=== PATIENT | male | born 1975 | race Caucasian/White ===

== ENCOUNTER 2023-04-10 02:41 | Observation (INO) | payer BC ==
[2023-04-10] MEDS ORDERED: IPRATROPIUM-ALBUTEROL 3 ML NEB INHALATION STA (03:04)
--- NOTE | 2023-04-10 03:07 | ED ---
General Adult HPI - General Source: patient Mode of arrival: wheelchair Limitations: no limitations <Vik Verduzco - Last Filed: 04/10/23 03:54> <Sincere Salguero - Last Filed: 04/16/23 07:26> - General Chief complaint: Shortness of Breath Stated complaint: SOB Time Seen by Provider: 04/10/23 02:51 - History of Present Illness Initial comments: 47-year-old male with past medical history significant for hypertension and morbid obesity presenting to the ED with a chief complaint of illness of breath. Patient states for the past 3 weeks has had cough. However states over the past week has had increased shortness of breath especially with exertion. Denies chest pain. No abdominal pain. No nausea or vomiting diarrhea. No other complaints. Patient noted to be hypertensive in triage. Patient reports that he has been taking all of his medications as scheduled. (Vik Verduzco) - Related Data Home Medications Medication Instructions Recorded Confirmed Losartan/Hydrochlorothiazide 1 tab PO DAILY 04/10/23 04/10/23 [Hyzaar 100-25 Tablet] Nebivolol HCl [Bystolic] 10 mg PO HS 04/10/23 04/10/23 Previous Rx's Medication Instructions Recorded Albuterol Inhaler [Ventolin Hfa 2 puff INHALATION Q6H PRN #1 each 04/11/23 Inhaler] Azithromycin [Zithromax] 500 mg PO DAILY 2 Days #2 tab 04/11/23 predniSONE [Deltasone] 40 mg PO DAILY 4 Days #8 tab 04/11/23 Allergies Allergy/AdvReac Type Severity Reaction Status Date / Time Iodinated Contrast Media Allergy Rash/Hives Verified 04/10/23 13:28 Review of Systems ROS Other: All systems not noted in ROS Statement are negative. <Vik Verduzco - Last Filed: 04/10/23 03:54> ROS Other: All systems not noted in ROS Statement are negative. <Sincere Salguero - Last Filed: 04/16/23 07:26> ROS Statement: Those systems with pertinent positive or pertinent negative responses have been documented in the HPI. Past Medical History Past Medical History: Hypertension History of Any Multi-Drug Resistant Organisms: None Reported Past Surgical History: No Surgical Hx Reported Past Psychological History: No Psychological Hx Reported Smoking Status: Never smoker Past Alcohol Use History: None Reported Past Drug Use History: None Reported <WestonJany brooksVik - Last Filed: 04/10/23 03:54> General Exam Limitations: no limitations General appearance: alert, in no apparent distress Respiratory exam: Present: wheezes (Left lung. ) Cardiovascular Exam: Present: regular rate, normal rhythm GI/Abdominal exam: Present: soft Neurological exam: Present: alert, oriented X3 Skin exam: Present: warm, dry <WestonJany brooksVik - Last Filed: 04/10/23 03:54> Course Vital Signs 04/10/23 04/10/23 04/10/23 02:42 03:50 03:58 Temperature 98.7 F Pulse Rate 81 77 80 Respiratory 18 Rate Blood Pressure 191/106 O2 Sat by Pulse 97 Oximetry 04/10/23 04/10/23 04/10/23 04:54 07:14 07:31 Temperature 98.3 F Pulse Rate 75 70 79 Respiratory 24 24 17 Rate Blood Pressure 149/78 150/90 O2 Sat by Pulse 92 L 93 L 94 L Oximetry EKG Findings - EKG Results: EKG: interpreted by ERMD, sinus rhythm (rate 79 bpm), normal axis, normal QRS, normal ST/T <Jose MSincere - Last Filed: 04/16/23 07:26> Medical Decision Making - Lab Data Result diagrams: 04/10/23 03:08 04/10/23 03:08 <LubaJanyVik - Last Filed: 04/10/23 03:54> - Lab Data Result diagrams: 04/10/23 03:08 04/10/23 03:08 <Jose MSincere - Last Filed: 04/16/23 07:26> - Medical Decision Making Was pt. sent in by a medical professional or institution (, PA, STUBBER, urgent care, hospital, or senior living...) When possible be specific @ -No Did you speak to anyone other than the patient for history (EMS, parent, family, police, friend...)? What history was obtained from this source @ -No Did you review nursing and triage notes (agree or disagree)? Why? @ -I reviewed and agree with nursing and triage notes Were old charts reviewed (outside hosp., previous admission, EMS record, old EKG, old radiological studies, urgent care reports/EKG's, senior living records)? Report findings @ -No old charts were reviewed Differential Diagnosis (chest pain, altered mental status, abdominal pain women, abdominal pain men, vaginal bleeding, weakness, fever, dyspnea, syncope, headache, dizziness, GI bleed, back pain, seizure, CVA, palpatations, mental health, musculoskeletal)? @ -Differential Dyspnea: Coronary syndrome, arrhythmia, tamponade, asthma, COPD, pulmonary embolism, pneumonia, pneumothorax, pulmonary effusion, anaphylaxis, diabetic ketoacidosis, flailed chest, pulmonary contusion, diaphragmatic rupture, anemia, neuromuscular, this is not meant to be an all-inclusive list. EKG interpreted by me (3pts min.). @ -As above X-rays interpreted by me (1pt min.). @ -Pending CT interpreted by me (1pt min.). @ -None done U/S interpreted by me (1pt. min.). @ -None done What testing was considered but not performed or refused? (CT, X-rays, U/S, labs)? Why? @ -None What meds were considered but not given or refused? Why? @ -None Did you discuss the management of the patient with other professionals (professionals i.e. , PA, STUBBER, lab, RT, psych nurse, social worker masters, felter tennis balls, teacher, strike operations officer, machine adjuster leader case trim)? Give summary @ -No Was smoking cessation discussed for >3mins.? @ -No Was critical care preformed (if so, how long)? @ -No Were there social determinants of health that impacted care today? How? (Homelessness, low income, unemployed, alcoholism, drug addiction, transportation, low edu. Level, literacy, decrease access to med. care, half-way, rehab)? @ -No Was there de-escalation of care discussed even if they declined (Discuss DNR or withdrawal of care, Hospice)? DNR status @ -No What co-morbidities impacted this encounter? (DM, HTN, Smoking, COPD, CAD, Cancer, CVA, ARF, Chemo, Hep., AIDS, mental health diagnosis, sleep apnea, morbid obesity)? @ -None Was patient admitted / discharged? Hospital course, mention meds given and route, prescriptions, significant lab abnormalities, going to OR and other pertinent info. @ -Pending 47-year-old male presenting to the ED with complaints of cough for the last 3 weeks with dyspnea especially upon exertion for the past week. At this time laboratory and imaging were pending and case signed out to my attending physician Dr. Salguero. ([facility]) Was patient admitted / discharged? Hospital course, mention meds given and route, prescriptions, significant lab abnormalities, going to OR and other pertinent info. @ -[Patient is admitted to have further treatment for possible pneumonia. The patient has wheezing which at this point is probably a reactive airway disease but he does have cardiomegaly and untreated hypertension therefore will have cardiology consultation. Undiagnosed new problem with uncertain prognosis? @ -[No] Drug Therapy requiring intensive monitoring for toxicity (Heparin, Nitro, Insulin, Cardizem)? @ -[No] Were any procedures done? @ -[No] Diagnosis/symptom? @ -[Acute reactive airway disease, possible bronchitis versus pneumonia Hypertension Acute, or Chronic, or Acute on Chronic? @ -[Acute Uncomplicated (without systemic symptoms) or Complicated (systemic symptoms)? @ -[, Complicated by dyspnea Side effects of treatment? @ -[No] Exacerbation, Progression, or Severe Exacerbation? @ -[No] Poses a threat to life or bodily function? How? (Chest pain, USA, ME, pneumonia, PE, COPD, DKA, ARF, appy, cholecystitis, CVA, Diverticulitis, Homicidal, Suicidal, threat to staff... and all critical care pts) @ -[Low likelihood (Sincere Salguero) - Lab Data Lab Results 04/10/23 04/10/23 04/10/23 Range/Units 03:08 03:08 03:08 WBC 10.2 (3.8-10.6) k/uL RBC 4.73 (4.30-5.90) m/uL Hgb 16.4 (13.0-17.5) gm/dL Hct 46.7 (39.0-53.0) % MCV 98.8 (80.0-100.0) fL MCH 34.7 (25.0-35.0) pg MCHC 35.2 (31.0-37.0) g/dL RDW 13.9 (11.5-15.5) % Plt Count 245 (150-450) k/uL MPV 8.7 Neutrophils % 73 % Lymphocytes % 18 % Monocytes % 5 % Eosinophils % 2 % Basophils % 1 % Neutrophils # 7.4 (1.3-7.7) k/uL Lymphocytes # 1.8 (1.0-4.8) k/uL Monocytes # 0.5 (0-1.0) k/uL Eosinophils # 0.2 (0-0.7) k/uL Basophils # 0.1 (0-0.2) k/uL PT 10.3 (10.0-12.5) sec INR 0.9 (<1.2) APTT 24.6 (22.0-30.0) sec Sodium (137-145) mmol/L Potassium (3.5-5.1) mmol/L Chloride (98-107) mmol/L Carbon Dioxide (22-30) mmol/L Anion Gap mmol/L BUN (9-20) mg/dL Creatinine (0.66-1.25) mg/dL Est GFR (CKD-EPI)AfAm (>60 ml/min/1.73 sqM) Est GFR (CKD-EPI)NonAf (>60 ml/min/1.73 sqM) Glucose (74-99) mg/dL Plasma Lactic Acid Abdi (0.7-2.0) mmol/L Calcium (8.4-10.2) mg/dL Magnesium (1.6-2.3) mg/dL Total Bilirubin (0.2-1.3) mg/dL AST (17-59) U/L ALT (4-49) U/L Alkaline Phosphatase (38-126) U/L Troponin I (0.000-0.034) ng/mL NT-Pro-B Natriuret Pep pg/mL Total Protein (6.3-8.2) g/dL Albumin (3.5-5.0) g/dL Procalcitonin (0.02-0.09) ng/mL Urine Color Urine Appearance (Clear) Urine pH (5.0-8.0) Ur Specific Vestal (1.001-1.035) Urine Protein (Negative) Urine Glucose (UA) (Negative) Urine Ketones (Negative) Urine Blood (Negative) Urine Nitrite (Negative) Urine Bilirubin (Negative) Urine Urobilinogen (<2.0) mg/dL Ur Leukocyte Esterase (Negative) Urine RBC (0-5) /hpf Urine WBC (0-5) /hpf Hyaline Casts (0-2) /lpf Urine Mucus (None) /hpf Influenza Type A (PCR) Not Detected (Not Detectd) Influenza Type B (PCR) Not Detected (Not Detectd) RSV (PCR) Not Detected (Not Detectd) SARS-CoV-2 (PCR) Not Detected (Not Detectd) 04/10/23 04/10/23 04/10/23 Range/Units 03:08 03:08 03:08 WBC (3.8-10.6) k/uL RBC (4.30-5.90) m/uL Hgb (13.0-17.5) gm/dL Hct (39.0-53.0) % MCV (80.0-100.0) fL MCH (25.0-35.0) pg MCHC (31.0-37.0) g/dL RDW (11.5-15.5) % Plt Count (150-450) k/uL MPV Neutrophils % % Lymphocytes % % Monocytes % % Eosinophils % % Basophils % % Neutrophils # (1.3-7.7) k/uL Lymphocytes # (1.0-4.8) k/uL Monocytes # (0-1.0) k/uL Eosinophils # (0-0.7) k/uL Basophils # (0-0.2) k/uL PT (10.0-12.5) sec INR (<1.2) APTT (22.0-30.0) sec Sodium 137 (137-145) mmol/L Potassium 4.1 (3.5-5.1) mmol/L Chloride 100 (98-107) mmol/L Carbon Dioxide 27 (22-30) mmol/L Anion Gap 10 mmol/L BUN 10 (9-20) mg/dL Creatinine 0.55 L (0.66-1.25) mg/dL Est GFR (CKD-EPI)AfAm >90 (>60 ml/min/1.73 sqM) Est GFR (CKD-EPI)NonAf >90 (>60 ml/min/1.73 sqM) Glucose 117 H (74-99) mg/dL Plasma Lactic Acid Abdi 1.1 (0.7-2.0) mmol/L Calcium 9.7 (8.4-10.2) mg/dL Magnesium 1.9 (1.6-2.3) mg/dL Total Bilirubin 0.9 (0.2-1.3) mg/dL AST 57 (17-59) U/L ALT 54 H (4-49) U/L Alkaline Phosphatase 81 (38-126) U/L Troponin I <0.012 (0.000-0.034) ng/mL NT-Pro-B Natriuret Pep 95 pg/mL Total Protein 8.5 H (6.3-8.2) g/dL Albumin 4.3 (3.5-5.0) g/dL Procalcitonin (0.02-0.09) ng/mL Urine Color Urine Appearance (Clear) Urine pH (5.0-8.0) Ur Specific Vestal (1.001-1.035) Urine Protein (Negative) Urine Glucose (UA) (Negative) Urine Ketones (Negative) Urine Blood (Negative) Urine Nitrite (Negative) Urine Bilirubin (Negative) Urine Urobilinogen (<2.0) mg/dL Ur Leukocyte Esterase (Negative) Urine RBC (0-5) /hpf Urine WBC (0-5) /hpf Hyaline Casts (0-2) /lpf Urine Mucus (None) /hpf Influenza Type A (PCR) (Not Detectd) Influenza Type B (PCR) (Not Detectd) RSV (PCR) (Not Detectd) SARS-CoV-2 (PCR) (Not Detectd) 04/10/23 04/10/23 Range/Units 03:08 05:20 WBC (3.8-10.6) k/uL RBC (4.30-5.90) m/uL Hgb (13.0-17.5) gm/dL Hct (39.0-53.0) % MCV (80.0-100.0) fL MCH (25.0-35.0) pg MCHC (31.0-37.0) g/dL RDW (11.5-15.5) % Plt Count (150-450) k/uL MPV Neutrophils % % Lymphocytes % % Monocytes % % Eosinophils % % Basophils % % Neutrophils # (1.3-7.7) k/uL Lymphocytes # (1.0-4.8) k/uL Monocytes # (0-1.0) k/uL Eosinophils # (0-0.7) k/uL Basophils # (0-0.2) k/uL PT (10.0-12.5) sec INR (<1.2) APTT (22.0-30.0) sec Sodium (137-145) mmol/L Potassium (3.5-5.1) mmol/L Chloride (98-107) mmol/L Carbon Dioxide (22-30) mmol/L Anion Gap mmol/L BUN (9-20) mg/dL Creatinine (0.66-1.25) mg/dL Est GFR (CKD-EPI)AfAm (>60 ml/min/1.73 sqM) Est GFR (CKD-EPI)NonAf (>60 ml/min/1.73 sqM) Glucose (74-99) mg/dL Plasma Lactic Acid Abdi (0.7-2.0) mmol/L Calcium (8.4-10.2) mg/dL Magnesium (1.6-2.3) mg/dL Total Bilirubin (0.2-1.3) mg/dL AST (17-59) U/L ALT (4-49) U/L Alkaline Phosphatase (38-126) U/L Troponin I (0.000-0.034) ng/mL NT-Pro-B Natriuret Pep pg/mL Total Protein (6.3-8.2) g/dL Albumin (3.5-5.0) g/dL Procalcitonin 0.13 H (0.02-0.09) ng/mL Urine Color Yellow Urine Appearance Clear (Clear) Urine pH 6.0 (5.0-8.0) Ur Specific Vestal 1.017 (1.001-1.035) Urine Protein 1+ H (Negative) Urine Glucose (UA) Negative (Negative) Urine Ketones Negative (Negative) Urine Blood Negative (Negative) Urine Nitrite Negative (Negative) Urine Bilirubin Negative (Negative) Urine Urobilinogen <2.0 (<2.0) mg/dL Ur Leukocyte Esterase Negative (Negative) Urine RBC 1 (0-5) /hpf Urine WBC 1 (0-5) /hpf Hyaline Casts 1 (0-2) /lpf Urine Mucus Moderate H (None) /hpf Influenza Type A (PCR) (Not Detectd) Influenza Type B (PCR) (Not Detectd) RSV (PCR) (Not Detectd) SARS-CoV-2 (PCR) (Not Detectd) - EKG Data EKG Comments: EKG shows a sinus rhythm without acute ST or T-wave changes at 79 beats for minute. Short ME interval at 113 ms. QRS 97, QT/QTc 354/389. (Vik Verduzco) Disposition <Vik Verduzco - Last Filed: 04/10/23 03:54> Is patient prescribed a controlled substance at d/c from ED?: No <Sincere Salguero - Last Filed: 04/16/23 07:26> Clinical Impression: Reactive airway disease, Hypertension Narrative: possible pneumonia (Sincere Salguero) Disposition: ADMITTED IP TO THIS HOSP Condition: Fair
[2023-04-10] MEDS ORDERED: LORazepam 2 MG/ML INJ IV STA (03:29)
[2023-04-10 03:47] LABS: Basophils # (A) 0.1 k/uL (0-0.2); Basophils % (A) 1 %; Eosinophils # (A) 0.2 k/uL (0-0.7); Eosinophils % (A) 2 %; HCT 46.7 % (39.0-53.0); HGB 16.4 gm/dL (13.0-17.5); Lymphocytes # (A) 1.8 k/uL (1.0-4.8); Lymphocytes % (A) 18 %; MCH 34.7 pg (25.0-35.0); MCHC 35.2 g/dL (31.0-37.0); MCV 98.8 fL (80.0-100.0); Mean Platelet Volume 8.7; Monocytes # (A) 0.5 k/uL (0-1.0); Monocytes % (A) 5 %; Neutrophils # (A) 7.4 k/uL (1.3-7.7); Neutrophils % (A) 73 %; Platelet Count 245 k/uL (150-450); RBC 4.73 m/uL (4.30-5.90); RDW 13.9 % (11.5-15.5); WBC 10.2 k/uL (3.8-10.6)
[2023-04-10 03:48] LABS: ALT 54 U/L (4-49); AST 57 U/L (17-59); African American GFR (CKD) >90 (>60 ml/min/1.73 sqM); Albumin 4.3 g/dL (3.5-5.0); Alkaline Phosphatase 81 U/L (38-126); Anion Gap 10 mmol/L; Blood Urea Nitrogen 10 mg/dL (9-20); Calcium 9.7 mg/dL (8.4-10.2); Carbon Dioxide 27 mmol/L (22-30); Chloride 100 mmol/L (98-107); Glucose 117 mg/dL (74-99); Magnesium 1.9 mg/dL (1.6-2.3); Non-African American GFR(CKD) >90 (>60 ml/min/1.73 sqM); Potassium 4.1 mmol/L (3.5-5.1); Sodium 137 mmol/L (137-145); Total Bilirubin 0.9 mg/dL (0.2-1.3); Total Protein 8.5 g/dL (6.3-8.2)
[2023-04-10 03:52] LABS: INR 0.9 (<1.2); Partial Thromboplastin Time 24.6 sec (22.0-30.0); Prothrombin Time 10.3 sec (10.0-12.5)
[2023-04-10] MEDS ORDERED: NITROGLYCERIN OINT 1 INCH/GM PACKET TOPICAL STA (03:53)
[2023-04-10 03:57] LABS: NT-Pro-B-Type Natriuretic Pept 95 pg/mL
--- NOTE | 2023-04-10 04:52 | XR ---
EXAM: XR Chest, 2 Views CLINICAL HISTORY: r/o pna TECHNIQUE: Frontal and lateral views of the chest. COMPARISON: No relevant prior studies available. FINDINGS: Lungs: Heart is at the upper limits of normal/mildly enlarged with pulmonary vascular congestion/edema. Hypoventilation with bilateral lower lobe atelectasis and/or infiltrates. Pleural space: Unremarkable. No pneumothorax. Heart: See above Mediastinum: Unremarkable. Normal mediastinal contour. Bones/joints: Grossly unremarkable. IMPRESSION: 1. Heart is at the upper limits of normal/mildly enlarged with pulmonary vascular congestion/edema. 2. Hypoventilation with bilateral lower lobe atelectasis and/or infiltrates. Correlate clinically.
[2023-04-10 05:46] LABS: Appearance,Urine Clear (Clear); Bilirubin,Urine Negative (Negative); Blood,Urine Negative (Negative); Color,Urine Yellow; Glucose,Urine (UA) Negative (Negative); Hyaline Casts,Urine 1 /lpf (0-2); Ketones,Urine Negative (Negative); Leukocyte Esterase,Urine Negative (Negative); Mucus,Urine Moderate /hpf; Nitrite,Urine Negative (Negative); Protein,Urine 1+ (Negative); RBC,Urine 1 /hpf (0-5); Specific Gravity,Urine 1.017 (1.001-1.035); Urobilinogen,Urine <2.0 mg/dL (<2.0); WBC,Urine 1 /hpf (0-5)
[2023-04-10] MEDS ORDERED: AZITHROMYCIN 500 MG TAB PO STA (06:13)
[2023-04-10] MEDS ORDERED: ALBUTEROL NEBULIZED 2.5 MG/3 ML INHALATION STA (06:13)
[2023-04-10] MEDS ORDERED: predniSONE 20 MG TAB PO STA (06:13)
[2023-04-10] MEDS ORDERED: ACETAMINOPHEN TAB 325 MG TAB PO PRN (06:14)
[2023-04-10] MEDS ORDERED: IPRATROPIUM-ALBUTEROL 3 ML NEB INHALATION PRN (06:14)
[2023-04-10] MEDS ORDERED: NALOXONE 0.4 MG/ML 1 ML VIAL IVP PRN (06:14)
[2023-04-10] MEDS: IPRATROPIUM-ALBUTEROL 3 ML NEB INHALATION SCH ×4 (09:14→20:36)
[2023-04-10] MEDS: AZITHROMYCIN 500 MG TAB PO SCH (09:58)
[2023-04-10] MEDS: predniSONE 20 MG TAB PO SCH (09:58)
--- NOTE | 2023-04-10 14:28 | P.HPIM ---
History of Present Illness H&P Date: 04/10/23 History of present illness; patient is a 47-year-old gentleman with past medical history significant for hypertension, obesity presented to the ER because of shortness of breath. Patient stated that he has been dealing with a cough for the last few weeks. Patient states the cough is dry. Denies any fever or chills. Patient has been noticing that he is getting more short of breath on exertion. Denies any chest pain. Denies any orthopnea or PND. There was no complain of swelling of feet. Patient denies any sick contacts in the family. Denies any nausea, vomiting abdominal pain. Because of the symptoms, patient came to the ER Initial lab work done in the ER showed WBC 10.2, hemoglobin 16.4, platelet count 245, sodium 137 potassium 4.1, BUN 10, creatinine 0.55, troponin 0.012 UA negative for infection Influenza A not detected Influenza B not detected RSV not detected COVID-19 not detected EKG done in the ER showed heart rate of 79 , no ST segment elevation or depression seen, no T-wave inversions seen. Chest x-ray done in the ER mild cardiomegaly with pulmonary vascular congestion/edema,Hypoventilation with bilateral lower lobe atelectasis or infiltrates Patient admitted to internal medicine service REVIEW OF SYSTEMS: CONSTITUTIONAL: As mentioned in HPI HEENT: No recent visual problems or hearing problems. Denied any sore throat. CARDIOVASCULAR: As mentioned in HPI PULMONARY: As mentioned in HPI GASTROINTESTINAL: No diarrhea, no nausea, no vomiting, no abdominal pain. NEUROLOGICAL: No headaches, no weakness, no numbness. HEMATOLOGICAL: Denies any bleeding or petechiae. GENITOURINARY: Denies any burning micturition, frequency, or urgency. MUSCULOSKELETAL/RHEUMATOLOGICAL: Denies any joint pain, swelling, or any muscle pain. ENDOCRINE: Denies any polyuria or polydipsia. The rest of the 14-point review of systems is negative. PHYSICAL EXAMINATION: GENERAL: The patient is alert and oriented x3, not in any acute distress. Well developed, well nourished. HEENT: Pupils are round and equally reacting to light. EOMI. No scleral icterus. No conjunctival pallor. Normocephalic, atraumatic. No pharyngeal erythema. No thyromegaly. CARDIOVASCULAR: S1 and S2 present. No murmurs, rubs, or gallops. PULMONARY: Coarse breath some bilaterally, expiratory wheeze audible ABDOMEN: Soft, nontender, nondistended, normoactive bowel sounds. No palpable organomegaly. MUSCULOSKELETAL: No joint swelling or deformity. EXTREMITIES: Chronic lymphedematous changes of lower extremity bilaterally NEUROLOGICAL: Gross neurological examination did not reveal any focal deficits. SKIN: No rashes. Assessment and plan Acute tracheobronchitis Exertional dyspnea Hypertension Obesity Monitor vital signs Monitor CBC Monitor CMP Continue telemetry monitoring And troponin Ordered d-dimer Ordered 2-D echo Continue steroids Continue azithromycin Resume home meds Consult cardiology Labs and medication were reviewed.. Continue same treatment. Continue with symptomatic treatment. Resume home medication. Monitor labs and vitals. DVT and GI prophylaxis. Further recommendations as per clinical course of the patient Dictation was produced using [employer] dictation software. please excuse any grammatical, word or spelling errors. Past Medical History Past Medical History: Hypertension History of Any Multi-Drug Resistant Organisms: None Reported Past Surgical History: No Surgical Hx Reported Past Psychological History: No Psychological Hx Reported Smoking Status: Never smoker Past Alcohol Use History: None Reported Past Drug Use History: None Reported Medications and Allergies Home Medications Medication Instructions Recorded Confirmed Type Losartan/Hydrochlorothiazide 1 tab PO DAILY 04/10/23 04/10/23 History [Hyzaar 100-25 Tablet] Nebivolol HCl [Bystolic] 10 mg PO HS 04/10/23 04/10/23 History Allergies Allergy/AdvReac Type Severity Reaction Status Date / Time Iodinated Contrast Media Allergy Rash/Hives Verified 04/10/23 13:28 Physical Exam Vitals: Vital Signs Temp Pulse Resp BP Pulse Ox 04/10/23 09:26 80 04/10/23 09:17 76 04/10/23 07:31 98.3 F 79 17 94 L 04/10/23 07:14 70 24 150/90 93 L 04/10/23 04:54 75 24 149/78 92 L 04/10/23 03:58 80 04/10/23 03:50 77 04/10/23 02:42 98.7 F 81 18 191/106 97 Intake and Output 04/09/23 04/10/23 04/10/23 22:59 06:59 14:59 Intake Total 118 Balance 118 Intake: Oral 118 Other: Weight 215.91 kg Results CBC & Chem 7: 04/10/23 03:08 04/10/23 03:08 Labs: Abnormal Lab Results - Last 24 Hours (Table) 04/10/23 04/10/23 Range/Units 03:08 05:20 Creatinine 0.55 L (0.66-1.25) mg/dL Glucose 117 H (74-99) mg/dL ALT 54 H (4-49) U/L Total Protein 8.5 H (6.3-8.2) g/dL Urine Protein 1+ H (Negative) Urine Mucus Moderate H (None) /hpf
[2023-04-10] MEDS: LOSARTAN-HCTZ 50-12.5 MG 1 EACH TAB PO SCH (15:06)
[2023-04-10] MEDS ORDERED: NEBIVOLOL 5 MG TAB PO SCH (21:00)
[2023-04-10 21:51] VITALS: RESP 16
[2023-04-11] MEDS: IPRATROPIUM-ALBUTEROL 3 ML NEB INHALATION SCH ×2 (07:32→11:21)
[2023-04-11 07:56] VITALS: BP 137/82; TEMP 98
[2023-04-11] MEDS: AZITHROMYCIN 500 MG TAB PO SCH (08:26)
[2023-04-11] MEDS: predniSONE 20 MG TAB PO SCH (08:26)
[2023-04-11] MEDS: LOSARTAN-HCTZ 50-12.5 MG 1 EACH TAB PO SCH (08:27)
[2023-04-11 11:24] VITALS: PULSE 84
--- NOTE | 2023-04-11 12:41 | P.DS ---
Providers Date of admission: 04/10/23 06:16 Expected date of discharge: 04/11/23 Attending physician: Ying Pederson Consults: 04/10/23 14:27 Consult Physician Routine Consulting Provider: Mesfin Carbajal Consult Reason/Comments: Exertional dyspnea Do you want consulting provider notified?: Yes Primary care physician: [facility] Course: Discharge diagnoses; Acute tracheobronchitis Exertional dyspnea Hypertension Obesity Hospital course; patient is a 47-year-old gentleman with past medical history significant for hypertension, obesity presented to the ER because of shortness of breath. Patient stated that he has been dealing with a cough for the last few weeks. Patient states the cough is dry. Denies any fever or chills. Patient has been noticing that he is getting more short of breath on exertion. Denies any chest pain. Denies any orthopnea or PND. There was no complain of swelling of feet. Patient denies any sick contacts in the family. Denies any nausea, vomiting abdominal pain. Because of the symptoms, patient came to the ER Initial lab work done in the ER showed WBC 10.2, hemoglobin 16.4, platelet count 245, sodium 137 potassium 4.1, BUN 10, creatinine 0.55, troponin 0.012 UA negative for infection Influenza A not detected Influenza B not detected RSV not detected COVID-19 not detected EKG done in the ER showed heart rate of 79 , no ST segment elevation or depression seen, no T-wave inversions seen. Chest x-ray done in the ER mild cardiomegaly with pulmonary vascular congestion/edema,Hypoventilation with bilateral lower lobe atelectasis or infiltrates Patient admitted to internal medicine service 04/11. Patient seen and examined. Cardiology evaluated the patient, recommended keeping patient on current medications, 2-D echo was ordered but it will be done outpatient. Patient being discharged on prednisone and azithromycin. PHYSICAL EXAMINATION: GENERAL: The patient is alert and oriented x3, not in any acute distress. Well developed, well nourished. HEENT: Pupils are round and equally reacting to light. EOMI. No scleral icterus. No conjunctival pallor. Normocephalic, atraumatic. No pharyngeal erythema. No thyromegaly. CARDIOVASCULAR: S1 and S2 present. No murmurs, rubs, or gallops. PULMONARY: Chest is clear to auscultation, no wheezing or crackles. ABDOMEN: Soft, nontender, nondistended, normoactive bowel sounds. No palpable organomegaly. MUSCULOSKELETAL: No joint swelling or deformity. EXTREMITIES: No cyanosis, clubbing, or pedal edema. NEUROLOGICAL: Gross neurological examination did not reveal any focal deficits. SKIN: No rashes. Dictation was produced using [employer] dictation software. please excuse any grammatical, word or spelling errors. Patient Condition at Discharge: Fair Plan - Discharge Summary New Discharge Prescriptions: New Albuterol Inhaler [Ventolin Hfa Inhaler] 2 puff INHALATION Q6H PRN #1 each PRN Reason: Shortness Of Breath Or Wheezing Azithromycin [Zithromax] 500 mg PO DAILY 2 Days #2 tab predniSONE [Deltasone] 40 mg PO DAILY 4 Days #8 tab Continue Nebivolol HCl [Bystolic] 10 mg PO HS Losartan/Hydrochlorothiazide [Hyzaar 100-25 Tablet] 1 tab PO DAILY Discharge Medication List Losartan/Hydrochlorothiazide [Hyzaar 100-25 Tablet] 1 tab PO DAILY 04/10/23 [History] Nebivolol HCl [Bystolic] 10 mg PO HS 04/10/23 [History] Albuterol Inhaler [Ventolin Hfa Inhaler] 2 puff INHALATION Q6H PRN #1 each 04/11/23 [Rx] Azithromycin [Zithromax] 500 mg PO DAILY 2 Days #2 tab 04/11/23 [Rx] predniSONE [Deltasone] 40 mg PO DAILY 4 Days #8 tab 04/11/23 [Rx] Follow up Appointment(s)/Referral(s): Daryn Romero DO [Primary Care Provider] - 1-2 days Mesfin Carbajal MD [STAFF PHYSICIAN] - 1 Week Discharge Disposition: HOME SELF-CARE
--- NOTE | 2023-04-11 13:52 | P.CRDCN ---
History of Present Illness Consult date: 04/11/23 Reason for Consult (text): Exertional dyspnea History of present illness: This is Fidel Jeffers NP, I'm dictating on behalf of Dr. Harris's H&P and A&P The patient was interviewed and examined. HPI: Patient is a pleasant 47-year-old male who presented to the hospital with complaints of wheezing, productive cough for the last few weeks, and exertional dyspnea. Patient reports over the last few weeks he's had shortness of breath, and a productive cough with green sputum. He states his been increasingly difficult to walk to certain places without getting significantly short of breath. Patient also is reporting some subjective swelling in his lower extremities, he does state that his lower extremities do swell, but he states this is worse than it normally is. Due to this the patient presented to the emergency department for evaluation. Patient has a pertinent past medical history that includes hypertension, morbid obesity. EKG demonstrated sinus rhythm with no ST or T wave changes. ROS: [No fever, chills, or rigors] [no cough, phlegm, or expectoration] [no nausea, vomiting, or diarrhea] [no hematuria, dysuria] [no musculoskelatal complaints] [no strokes or seizures] [no skin lesions] EXAMINATION: GENERAL: Well-appearing, well-nourished and in no acute distress. NECK: Supple without JVD or thyromegaly. LUNGS: Breath sounds clear to auscultation bilaterally. Respiration equal and unlabored. No wheezes, rales or rhonchi. HEART: Regular rate and rhythm without murmurs, rubs or gallops. S1 and S2 heard. EXTREMITIES: Normal range of motion, no edema. No clubbing or cyanosis. Peripheral pulses intact and strong. REVIEW OF LABS, ECG & MEDICAL DATA: LABS: White count 10.2, hemoglobin 16.4, platelets 245, d-dimer 0.32, sodium 137, potassium 4.1, BUN 10, creatinine 0.55, magnesium 1.9, troponin-less than 0.0123, BNP 95, pro-calcitonin 0.13. EKG: Normal sinus rhythm IMAGING: Chest x-ray dated 04/10/2023 demonstrates heart is at the upper limits of normal/mildly enlarged with pulmonary vascular congestion/edema, hypoventilation with bilateral lower lobe atelectasis and/or infiltrates, correlate clinically. VITALS: Temp 98.0, pulse 84, respirations 16, blood pressure 137/82, O2 saturation 93% on room air IMPRESSION: 1. Bronchitis 2. Exertional dyspnea secondary to bronchitis 3. Morbid obesity 4. Lower extremity edema PLAN: D-dimer is within normal limits, no need for further evaluation for pulmonary embolism. Obtain echocardiogram with contrast to evaluate heart structure and function. Continue nebivolol and Hyzaar. It's very likely that the patient's exertional dyspnea secondary to bronchitis. Recommend antibiotics per the medical team. If patient would like to be discharged today, this is fine from a cardiology standpoint. Thank you for the consult and allowing us to participate in the care of this patient. Past Medical History Past Medical History: Hypertension History of Any Multi-Drug Resistant Organisms: None Reported Past Surgical History: No Surgical Hx Reported Past Psychological History: No Psychological Hx Reported Smoking Status: Never smoker Past Alcohol Use History: None Reported Past Drug Use History: None Reported Medications and Allergies Home Medications Medication Instructions Recorded Confirmed Type Losartan/Hydrochlorothiazide 1 tab PO DAILY 04/10/23 04/10/23 History [Hyzaar 100-25 Tablet] Nebivolol HCl [Bystolic] 10 mg PO HS 04/10/23 04/10/23 History Albuterol Inhaler [Ventolin Hfa 2 puff INHALATION Q6H PRN #1 each 04/11/23 Rx Inhaler] Azithromycin [Zithromax] 500 mg PO DAILY 2 Days #2 tab 04/11/23 Rx predniSONE [Deltasone] 40 mg PO DAILY 4 Days #8 tab 04/11/23 Rx Allergies Allergy/AdvReac Type Severity Reaction Status Date / Time Iodinated Contrast Media Allergy Rash/Hives Verified 04/10/23 13:28 Physical Exam Vitals: Vital Signs Temp Pulse Pulse Resp BP Pulse Ox 04/11/23 11:31 84 04/11/23 11:22 84 04/11/23 07:51 80 04/11/23 07:34 84 04/11/23 07:00 98.0 F 76 16 137/82 93 L 04/11/23 01:45 87 16 04/11/23 01:38 66 16 134/56 95 04/10/23 20:55 87 16 04/10/23 20:50 80 12/23/23 20:38 78 04/10/23 19:23 98.2 F 87 16 171/74 92 L 04/10/23 16:23 82 04/10/23 16:14 78 04/10/23 14:50 98.2 F 83 18 127/68 90 L Intake and Output 04/10/23 04/11/23 04/11/23 22:59 06:59 14:59 Intake Total 360 Balance 360 Intake: Oral 360 Other: # Voids 2 1 Results 04/10/23 03:08 04/10/23 03:08 Cardiac Enzymes 04/10/23 Range/Units 14:13 Troponin I <0.012 (0.000-0.034) ng/mL Current Medications Generic Name Dose Route Start Last Admin Trade Name Freq PRN Reason Stop Dose Admin Acetaminophen 650 mg 04/10/23 06:14 Acetaminophen Tab 325 Mg Tab PO Q4HR PRN Mild Pain or Fever > 100.5 Albuterol/Ipratropium 3 ml 04/10/23 08:00 04/11/23 11:21 Ipratropium-Albuterol 3 Ml Neb INHALATION 3 ml RT-QID JOVITA Administration Albuterol/Ipratropium 3 ml 04/10/23 06:14 Ipratropium-Albuterol 3 Ml Neb INHALATION RT-Q2H PRN Shortness Of Breath Or Wheezing Azithromycin 500 mg 04/10/23 09:00 04/11/23 08:26 Azithromycin 500 Mg Tab PO 04/12/23 09:01 500 mg DAILY JOVITA Administration Protocol HCTZ/Losartan Potassium 2 each 04/10/23 15:00 04/11/23 08:27 Losartan-Hctz 50-12.5 Mg 1 Each Tab PO 2 each DAILY JOVITA Administration Naloxone HCl 0.2 mg 04/10/23 06:14 Naloxone 0.4 Mg/Ml 1 Ml Vial IVP Q2M PRN Opioid Reversal Nebivolol 10 mg 04/12/23 09:00 Nebivolol 5 Mg Tab PO DAILY JOVITA Prednisone 40 mg 04/10/23 09:00 04/11/23 08:26 Prednisone 20 Mg Tab PO 04/14/23 09:01 40 mg DAILY JOVITA Administration Intake and Output 04/10/23 04/11/23 04/11/23 22:59 06:59 14:59 Intake Total 360 Balance 360 Intake: Oral 360 Other: # Voids 2 1 04/10/23 03:08 04/10/23 03:08
[2023-04-12] MEDS ORDERED: amLODIPine 10 MG TAB PO SCH (09:00)
[2023-04-12] MEDS ORDERED: NEBIVOLOL 5 MG TAB PO SCH (09:00)
== END 2023-04-11 14:07 | disposition home or self-care (01) ==
LOC: EC 02:41 → 6NMEDSUR 06:16
PROVIDERS: ADMIT Hospitalist; ATTEND Hospitalist
DX: J20.9 Acute bronchitis, unspecified (principal); I11.9 Hypertensive heart disease without heart failure; E66.01 Morbid (severe) obesity due to excess calories; Z68.44 Body mass index [BMI] 60.0-69.9, adult; Z79.899 Other long term (current) drug therapy; Z91.041 Radiographic dye allergy status; Z20.822 Contact with and (suspected) exposure to COVID-19
CPT/HCPCS: 96365; 96375; 99285; 36415; 94640 ×4; 93005; 85379 ×2; 83880; 80061; 80053; 83605; 83735; 84484; 85025; 85610; 85730; 81001; 87040; 84145; 87636; 71046; G0378 ×3; J2060; J0696; J7512 ×2

== ENCOUNTER 2023-07-09 08:45 | Day surgery (SDC) | payer BC ==
[~2023-07-09 08:45] MED LIST: ALPRAZolam 0.25 MG TAB PO PRN; HEPARIN SODIUM,PORCINE (1 ML) 2,500 UNIT in SODIUM CHLORIDE 0.9% 250 ML IRRIGATION PRN; HEPARIN SODIUM,PORCINE 10,000 UNIT in SODIUM CHLORIDE 0.9% 1,000 ML IRRIGATION PRN; NITROGLYCERIN SL TABS 0.4 MG TAB SUBLINGUAL PRN
[2023-07-09] MEDS: SODIUM CHLORIDE 0.9% 1,000 ML in EMPTY BAG 1 BAG IV SCH (08:52)
[2023-07-09] MEDS: ASPIRIN 325 MG TAB PO STA (09:13)
[2023-07-09 09:29] LABS: Basophils % (A) 0 %; Eosinophils # (A) 0.1 k/uL (0-0.7); Eosinophils % (A) 1 %; HCT 45.4 % (39.0-53.0); HGB 15.1 gm/dL (13.0-17.5); Lymphocytes # (A) 1.7 k/uL (1.0-4.8); Lymphocytes % (A) 13 %; MCH 33.2 pg (25.0-35.0); MCHC 33.3 g/dL (31.0-37.0); MCV 99.8 fL (80.0-100.0); Mean Platelet Volume 8.6; Monocytes # (A) 0.5 k/uL (0-1.0); Monocytes % (A) 4 %; Neutrophils % (A) 81 %; Platelet Count 217 k/uL (150-450); RBC 4.55 m/uL (4.30-5.90); RDW 12.4 % (11.5-15.5); WBC 13.6 k/uL (3.8-10.6)
[2023-07-09 09:32] VITALS: RESP 16; TEMP 97.9
[2023-07-09] MEDS: ATORVASTATIN 80 MG TAB PO STA (09:38)
[2023-07-09] MEDS: ALPRAZolam 0.5 MG TAB PO PRN (09:38)
[2023-07-09] MEDS ORDERED: VERAPAMIL 2.5 MG/ML 2 ML AMP ONE (10:00)
[2023-07-09] MEDS ORDERED: LIDOCAINE 1% INJ 10MG/ML (20 ML MDV) ONE (10:00)
[2023-07-09] MEDS ORDERED: fentaNYL (PF) 50 MCG/ML 2 ML AMP ONE (10:00)
[2023-07-09 10:37] LABS: African American GFR (CKD) >90 (>60 ml/min/1.73 sqM); Anion Gap 8 mmol/L; Blood Urea Nitrogen 13 mg/dL (9-20); Calcium 9.4 mg/dL (8.4-10.2); Carbon Dioxide 24 mmol/L (22-30); Chloride 105 mmol/L (98-107); Glucose 132 mg/dL (74-99); Non-African American GFR(CKD) >90 (>60 ml/min/1.73 sqM); Potassium 4.3 mmol/L (3.5-5.1); Sodium 137 mmol/L (137-145)
[2023-07-09] MEDS: MIDAZOLAM 2 MG/2 ML VIAL IVP ONE (10:37)
[2023-07-09] MEDS: fentaNYL (PF) 50 MCG/ML 2 ML AMP IVP ONE (10:37)
[2023-07-09] MEDS: LIDOCAINE 1% INJ 10MG/ML (20 ML MDV) SQ ONE (10:39)
[2023-07-09] MEDS: VERAPAMIL SYRINGE (5 MG/10 ML) INTRAARTER ONE (10:40)
[2023-07-09] MEDS: NITROGLYCERIN 1000MCG/10ML SYRINGE INTRAARTER ONE (10:45)
[2023-07-09] MEDS: HEPARIN SODIUM 1,000 UN/ML (10ML VL) IV ONE (10:48)
[2023-07-09] MEDS: IOPAMIDOL-370 100ML BTL INJ ONE (10:58)
[2023-07-09] MEDS ORDERED: RX INFO: IV CONTRAST WAS GIVEN 1 EACH MISC MISCELLANE PRN (11:13)
--- NOTE | 2023-07-09 11:13 | P.CARDCATH ---
Date of Procedure: 07/09/23 Description of Procedure: DIAGNOSTIC CORONARY ANGIOGRAPHY and LEFT HEART CATH REPORT PROCEDURES PERFORMED: Left heart catheterization Selective coronary angiography Moderate conscious sedation 20 mins [Ultrasound assisted] Right radial access INDICATION: 47-year-old presented to cardiology clinic because of exertional shortness of breath. Because of his large body habitus he is not a good candidate for stress testing as it would lead to significant attenuation artifact CONSENT: I have explained the procedural steps of above-mentioned procedures in layman's terms to the patient. I discussed the risks (including but not limited to stroke, emergent vascular or cardiac surgery or ), benefits and alternative therapies for the above-mentioned procedure. I discussed the risks of sedation/analgesia and blood product administration (if indicated). The patient has indicated understanding and acceptance of these risks. Conscious Sedation: Patient's ECG, heart rate, blood pressure, pulse oximetry were monitored throughout the duration of procedure under my direct supervision. [2] mg Versed and [50] mg Fentanyl were used for induction of moderate conscious sedation. Total duration of moderate concious sedation 20 minutes. PROCEDURE: After explaining the risks, benefits and alternatives of the above mentioned procedures in detail to the patient, informed consent was obtained. Patient was taken to the catheterization lab, prepped and draped in usual sterile fashion using universal precuations. Barbow and esau test were performed to confirm adequate perfusion to fingers. Ultrasound was used to identify the radial artery. 1% lidocaine was infiltrated over the right radial artery. A 6-Palau[place] sheath was placed and secured in the right radial artery using modified Seldinger technique. The sheath was flushed and 7.5 mg verapamil and 200 mcg nitroglycerin was administered intra-arterially. J tipped wire was advanced under fluoroscopic guidance. Once the wire tip reached aortic root 8000 units of IV heparin was given. Over the wire JR4 diagnostic catheter was advanced. The wire in place the catheter was manipulated to cross the aortic valve and entered into LV under fluoroscopy guidance. The wire was removed and the catheter was flushed. LV pressures were obtained and pullback was performed under fluoroscopy. Catheter was manipulated to selectively engage the right coronary ostium. Right coronary angiography was performed in different angiographic projections. The JR4 diagnostic catheter was exchanged for a JL 4 diagnostic catheter over the J-wire. The wire was removed, catheter was flushed and manipulated under fluoroscopy to selectively engaged the left coronary ostium. Left coronary angioplasty was performed in different angiographic projections. Catheter was removed over the wire. Radial sheath was flushed. The right radial sheath was removed and a TR band was placed with excellent patent hemostasis was achieved. The patient tolerated the procedure well. Patient was transported back to the post catheterization holding area in stable condition. Angiographic images were reviewed in detail. HEMODYNAMICS: Aortic Pressure: 120/75 mmHg. LV pressure: 136/10 mmHg. LVEDP 25 mmHg. There was no significant gradient across the aortic valve. SELECTIVE CORONARY ARTERIOGRAPHY: LEFT MAIN: The left main is a large caliber vessel which trifurcates into the LAD, Ramus and circumflex. Left main appears angiographically normal. LEFT ANTERIOR DESCENDING CORONARY ARTERY: LAD is a large caliber vessel which wraps around to the apex. Proximal LAD appears angiographically normal. Mid LAD appears angiographically normal. Distal LAD appears angiographically normal. Proximal LAD gives a medium size diagonal branch which appears angiographically normal. Mid LAD gives diagonal 2 which appears angiographically normal LEFT CIRCUMFLEX CORONARY ARTERY: It is nondominant vessel. Left circumflex is a large caliber vessel. It appears angiographically normal. RAMUS: Ramus intermedius is a very small caliber vessel and appears angiographically Normal. RIGHT CORONARY ARTERY: Dominant vessel. The right coronary artery is a large caliber vessel which gives PDA and PLV branch. It appears angiographically normal. IMPRESSION: Angiographically normal coronary arteries as described above. Elevated LVEDP 25 mmHg PLAN: Aggressive risk factor modification per most recent ACC/AHA guidelines. 150 cc fluids for 3 hours Discharge home in 3 hours Follow-up in the office in 1-2 weeks. Performing Physician Lukas Armijo MD, FACC, RPVI Thank you for allowing [facility] to participate in this patient's care. Feel free to reach out in case of any followup questions.
[2023-07-09] MEDS ORDERED: SODIUM CHLORIDE 0.9% 1,000 ML IV SCH (11:15)
[2023-07-09 14:55] VITALS: BP 141/66; PULSE 72
== END 2023-07-09 15:04 | disposition home or self-care (01) ==
LOC: CATHCVL 08:45
PROVIDERS: ATTEND Student in an Organized Health Care Education/Training Program
DX: I87.2 Venous insufficiency (chronic) (peripheral) (principal); I10 Essential (primary) hypertension; G47.33 Obstructive sleep apnea (adult) (pediatric); E66.01 Morbid (severe) obesity due to excess calories; Z82.49 Family history of ischemic heart disease and other diseases of the circulatory system; Z79.899 Other long term (current) drug therapy
CPT/HCPCS: 93458; 76937; 80048; 85025; C1769 ×2; C1894; J2250; J2001; J3010; J1644; Q9967; J2305

== ENCOUNTER → 2024-08-03 | Outpatient (CLI) | payer BC ==
[2024-08-03 18:47] LABS: Basophils # (A) 0.07 X 10*3/uL (0.00-0.10); Basophils % (A) 0.5 %; Eosinophils # (A) 0.38 X 10*3/uL (0.04-0.35); Eosinophils % (A) 2.9 %; HCT 46.5 % (39.6-50.0); Lymphocytes # (A) 2.68 X 10*3/uL (0.90-5.00); Lymphocytes % (A) 20.7 %; MCH 32.9 pg (27.0-32.0); MCHC 34.4 g/dL (32.0-37.0); MCV 95.7 FL (80.0-97.0); Mean Platelet Volume 11.3 FL (9.5-12.2); Monocytes # (A) 0.77 X 10*3/uL (0.20-1.00); Monocytes % (A) 5.9 %; NRBC Per 100 WBC 0 X 10*3/uL (0.00-0.01); Neutrophils # (A) 9.02 X 10*3/uL (1.80-7.70); Neutrophils % (A) 69.7 %; Platelet Count 251 X 10*3/uL (140-440); RBC 4.86 X 10*6/uL (4.40-5.60); RDW 12.3 % (11.5-14.5); WBC 12.96 X 10*3/uL (4.50-10.00)
[2024-08-03 18:58] LABS: Blood Urea Nitrogen 10.8 mg/dL (9.0-27.0); Calcium 9.9 mg/dL (8.7-10.3); Chloride 98 mmol/L (96-109); Glucose 177 mg/dL (70-110); Potassium 4.1 mmol/L (3.5-5.5); Sodium 139 mmol/L (135-145)
[2024-08-04 03:48] LABS: Appearance,Urine Clear (Clear); Bilirubin,Urine Negative (Negative); Blood,Urine Negative (Negative); Color,Urine Yellow (Yellow); Ketones,Urine Negative (Negative); Nitrite,Urine Negative (Negative); PH, Urine 6.5; Specific Gravity,Urine 1.029 (1.001-1.030); Urobilinogen,Urine 0.2 E.U./DL
[2024-08-04 03:55] LABS: Bacteria,Urine None Seen (None Seen)
== END | disposition home or self-care (01) ==
LOC: LABWHC1 15:08
PROVIDERS: ATTEND Urology
DX: Z01.818 Encounter for other preprocedural examination (principal); N47.1 Phimosis; N40.1 Benign prostatic hyperplasia with lower urinary tract symptoms
CPT/HCPCS: 80048; 81001; 85025; 87086

== ENCOUNTER 2024-08-08 12:19 | Day surgery (SDC) | payer BC ==
[2024-08-03 14:33] VITALS: BMI 59.3
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
[~2024-08-08 12:19] MED LIST changes: -ALPRAZolam 0.25 MG TAB PO PRN; -HEPARIN SODIUM,PORCINE (1 ML) 2,500 UNIT in SODIUM CHLORIDE 0.9% 250 ML IRRIGATION PRN; -HEPARIN SODIUM,PORCINE 10,000 UNIT in SODIUM CHLORIDE 0.9% 1,000 ML IRRIGATION PRN; +LIDOCAINE 1% (10MG/ML) FOR IV START INTRADERMA PRN; -NITROGLYCERIN SL TABS 0.4 MG TAB SUBLINGUAL PRN; +ceFAZolin 2 GM in DEXTROSE 5% IN WATER 50 ML IVPB PRN; +fentaNYL (PF) 50 MCG/ML 2 ML AMP IV PRN
[2024-08-08] MEDS: LACTATED RINGERS 1,000 ML IV SCH (14:04)
[2024-08-08] MEDS: IV FLUID CONTINUATION 1,000 ML IV ONE ×2 (14:04→19:28)
[2024-08-08] MEDS: DEXAMETHASONE SOD PHOSPHATE 4 MG/ML 1 ML VIAL IV ONE (14:11)
[2024-08-08] MEDS: ONDANSETRON 4 MG/2 ML VIAL IVP ONE (14:11)
[2024-08-08 14:27] LABS: Glucose,Whole Blood 100 mg/dL (70-110)
[2024-08-08] MEDS ORDERED: SUCCINYLCHOLINE CHLORIDE 200 MG/10 ML VIAL IV ONE (16:50)
[2024-08-08] MEDS ORDERED: fentaNYL (PF) 50 MCG/ML 2 ML AMP ONE (16:50)
[2024-08-08] MEDS ORDERED: LIDOCAINE 1% INJ 10MG/ML (20 ML MDV) ONE (16:50)
[2024-08-08] MEDS ORDERED: MIDAZOLAM 2 MG/2 ML VIAL ONE (16:50)
[2024-08-08] MEDS ORDERED: PROPOFOL 10 MG/ML 20 ML VIAL IV ONE (16:50)
[2024-08-08] MEDS: ceFAZolin 3 GM in SODIUM CHLORIDE 0.9% 100 ML IVPB PRN (16:54)
[2024-08-08] MEDS: BUPIVACAINE (PF) 0.5% 30 ML VIAL SQ ONE ×2 (17:18)
--- NOTE | 2024-08-08 18:35 | P.OP ---
Date of Procedure: 08/08/24 Preoperative Diagnosis: Phimosis, BPH Postoperative Diagnosis: Same Procedure(s) Performed: Cystoscopy, circumcision, scrotoplasty Implants: None Anesthesia: YOKOA Surgeon: Guicho Patterson Estimated Blood Loss (ml): 20 Pathology: other (Foreskin) Condition: stable Disposition: PACU Indications for Procedure: This is a 48-year-old male with history of phimosis, and BPH. Patient has obstructive urinary symptoms, and significant phimosis, he has failed co rticosteroid cream. Discussed with him the option of a circumcision. He is aware of the risk which include but not limited to bleeding, infection, injury to the penis. Discussed also with him we will do a cystoscopy in the same setting to rule out a urethral stricture or any abnormalities within the urethra. Risk-benefit and rationale of surgery was discussed in details Description of Procedure: Patient brought to the operating room, general anesthesia was induced. He was prepped and draped in sterile fashion placed under supine position. Next a penile block was performed using 0.5% Marcaine plain. At this time I attempted to reduce the foreskin but was unable to secondary to the significant amount of phimosis. At this time a dorsal slit was performed, hemostat was placed along the dorsal aspect of the foreskin, next using the Metzenbaums it was incised, at this point I was able to reduce the phimosis. Next an inner and outer circumferential incision was marked using the marking pen. Next using a scalpel both incisions were made. 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 At this time after removing the foreskin, decision was made to perform a mini scrotoplasty in order to allow the penis to be less buried and prevent tugging of the scrotum. The circumcision incision was slightly extended along the median raphae. This allowed further dissection of the penis in order for it to be less buried. At this point the scrotoplasty incision was closed using 3-0 Vicryl, next using 3-0 Vicryl interrupted stitches were placed in each quadrant of the penis. Next interrupted 3-0 chromic was placed in between the stitches. Skin glue was applied to the incision. Next attention was carried to the cystoscopy, flexible cystoscope was inserted per urethra advanced to the bladder, cystoscopy was performed showed no abnormality within the bladder. Patient had a small nonocclusive prostate, there was no evidence of urethral strictures. The cystoscope was withdrawn and the bladder was emptied using 14 [place] straight cath. Patient tolerated procedure well and taken to recovery in stable condition
[2024-08-08 18:46] VITALS: TEMP 97.4
[2024-08-08] MEDS: HYDROmorphone 0.5 MG/0.5 ML SYRINGE IVP PRN (19:22)
[2024-08-08 20:25] VITALS: RESP 16
[2024-08-08 20:55] VITALS: BP 128/74; PULSE 79
[2024-08-08] MEDS: KETOROLAC 15 MG/ML 1 ML VIAL IVP STA (21:01)
== END 2024-08-08 21:32 | disposition home or self-care (01) ==
LOC: OR 12:19
PROVIDERS: ATTEND Urology
DX: N47.1 Phimosis (principal); N40.0 Benign prostatic hyperplasia without lower urinary tract symptoms; I10 Essential (primary) hypertension; E78.5 Hyperlipidemia, unspecified; E66.01 Morbid (severe) obesity due to excess calories; Z87.891 Personal history of nicotine dependence; Z91.041 Radiographic dye allergy status; Z79.899 Other long term (current) drug therapy; Z88.8 Allergy status to other drugs, medicaments and biological substances; Z68.43 Body mass index [BMI] 50.0-59.9, adult
CPT/HCPCS: 54161; 55175; 52000; 88304; J2250; J0330; J1100; J0690; J2405; J2003; J3010; J1885; J2704; J1171; J0665